=== PATIENT | female | born 1985 | race Caucasian/White ===

== ENCOUNTER 2017-03-29 19:20 | Emergency (ER) | payer OTHER ==
[2017-03-29 20:32] LABS: BILIRUBIN NEGATIVE (NEGATIVE); BLOOD NEGATIVE Ery/uL (NEGATIVE); COLOR YELLOW (YELLOW); GLUCOSE (U) NORMAL (NORMAL); KETONE (U) 2+ (MODERATE) mg/dL (NEGATIVE); LEUKOCYTES NEGATIVE Leu/uL (NEGATIVE); NITRITE NEGATIVE (NEGATIVE); PROTEIN NEGATIVE (NEGATIVE); UROBILINOGEN 0.2 mg/dL (0.2-1.0); pH 6.5 (5.0-9.0)
[2017-03-29 20:33] LABS: CLARITY SLIGHTLY HAZY (CLEAR)
[2017-03-29 21:06] LABS: BASOPHIL 0.4 % (0-2); EOSINOPHIL 2.1 % (0-5); HCT 40.5 % (37.0-47.0); HGB 13.8 g/dl (12.5-16.0); LYMPHOCYTE 24.5 % (15-48); MCH 29.3 pg (25.0-31.0); MCHC 34.1 g/dL (32.0-36.0); MONOCYTE 6.8 % (0-12); NEUTROPHIL 66.2 % (41-80); PLT 215 K/uL (150-400); RBC 4.71 M/uL (4.20-5.40); RDW 12.8 % (11.5-14.0); WBC 8.5 K/uL (4.0-10.5)
[2017-03-29 21:25] LABS: ALBUMIN 3.6 g/dL (3.5-5.0); BILIRUBIN - TOTAL 0.4 mg/dL (0.1-1.0); CREATININE 0.6 mg/dL (0.5-1.0); GLOBULIN (CALCULATION) 2.7 g/dL (2.2-4.2); POTASSIUM 3.4 mmol/L (3.5-5.1); TOTAL PROTEIN 6.3 g/dL (6.4-8.3)
== END 2017-03-29 23:06 | disposition home or self-care (01) ==
LOC: FER 19:20
PROVIDERS: Nurse Practitioner
DX: O99.352 Diseases of the nervous system complicating pregnancy, second trimester (principal); G44.209 Tension-type headache, unspecified, not intractable; O99.282 Endocrine, nutritional and metabolic diseases complicating pregnancy, second trimester; E86.0 Dehydration; O99.89 Other specified diseases and conditions complicating pregnancy, childbirth and the puerperium; R00.2 Palpitations; Z88.5 Allergy status to narcotic agent; Z3A.14 14 weeks gestation of pregnancy
CPT/HCPCS: 36415; 80053; 81003; 85025; 87088

== ENCOUNTER → 2020-12-30 | Day surgery (SDC) | payer OTHER ==
[~2020-12-30] VITALS: Ht 177.8 cm; Wt 56.7 kg
[~2020-12-30] MED LIST: IBUPROFEN800 M1 PO; ZOLOFT50 MG PO; ZYRTEC-D TABLE1 EACH PO
[2020-12-30 07:23] LABS: HCG (URINE) SCREEN NEGATIVE (NEGATIVE)
== END | disposition home or self-care (01) ==
LOC: FAS 12-16 08:00
PROVIDERS: Obstetrics & Gynecology
DX: N84.0 Polyp of corpus uteri (principal); K21.9 Gastro-esophageal reflux disease without esophagitis; N83.201 Unspecified ovarian cyst, right side; Z79.899 Other long term (current) drug therapy; Z88.5 Allergy status to narcotic agent
CPT/HCPCS: 84703; J1885; J2250; J2405; J2704; J3010; J7120

== ENCOUNTER 2021-11-13 11:46 | Emergency (ER) | payer OTHER ==
[2021-11-13 12:45] LABS: BASOPHIL 0.2 % (0-2); EOSINOPHIL 0.7 % (0-5); HCT 40.4 % (37.0-47.0); HGB 13.3 g/dl (12.5-16.0); LYMPHOCYTE 17.2 % (15-48); MCH 28.4 pg (25.0-31.0); MCHC 32.9 g/dL (32.0-36.0); MCV 86.1 fL (78.0-100.0); MONOCYTE 6.4 % (0-12); MPV 9.9 fL (6.0-9.5); NEUTROPHIL 75.3 % (41-80); NRBC 0; PLT 223 K/uL (150-400); RBC 4.69 M/uL (4.20-5.40); RDW 13.2 % (11.5-14.0); WBC 8.3 K/uL (4.0-10.5)
[2021-11-13 13:08] LABS: BUN/CREAT RATIO (CALC) 22.6 RATIO; CREATININE 0.62 mg/dL (0.51-0.95)
== END 2021-11-13 15:55 | disposition home or self-care (01) ==
LOC: FER 11:46
PROVIDERS: Emergency Medicine
DX: O20.0 Threatened abortion (principal); Z88.5 Allergy status to narcotic agent; Z3A.10 10 weeks gestation of pregnancy
CPT/HCPCS: 36415; 36430; 76801; 80048; 84702; 85025; 86850; 86900; 86901; J2790

== ENCOUNTER 2021-11-19 11:20 | Emergency (ER) | payer OTHER ==
[2021-11-19 14:22] LABS: BASOPHIL 0.6 % (0-2); EOSINOPHIL 0.8 % (0-5); HGB 12.8 g/dl (12.5-16.0); LYMPHOCYTE 19.5 % (15-48); MCH 28.4 pg (25.0-31.0); MCV 88.7 fL (78.0-100.0); MONOCYTE 5.8 % (0-12); MPV 10.6 fL (6.0-9.5); NEUTROPHIL 72.9 % (41-80); NRBC 0; PLT 234 K/uL (150-400); RBC 4.51 M/uL (4.20-5.40); RDW 13.2 % (11.5-14.0); WBC 9.5 K/uL (4.0-10.5)
[2021-11-19 14:34] LABS: BUN/CREAT RATIO (CALC) 19.6 RATIO; CREATININE 0.51 mg/dL (0.51-0.95); POTASSIUM 3.9 mmol/L (3.5-5.1)
== END 2021-11-19 14:58 | disposition home or self-care (01) ==
LOC: FER 11:20
PROVIDERS: Emergency Medicine
DX: O20.0 Threatened abortion (principal); Z3A.11 11 weeks gestation of pregnancy; Z88.5 Allergy status to narcotic agent
CPT/HCPCS: 36415; 76817; 80048; 84702; 85025

== ENCOUNTER 2021-12-08 14:25 | Emergency (ER) | payer OTHER | END 2021-12-08 18:49 | disposition left against medical advice (07) | LOC: FER 14:25 | DX: O20.9 Hemorrhage in early pregnancy, unspecified (principal); Z53.29 Procedure and treatment not carried out because of patient's decision for other reasons; Z3A.14 14 weeks gestation of pregnancy | CPT/HCPCS: 76815 ==